=== PATIENT | female | born 1925 | race Asian ===

== ENCOUNTER 2016-08-16 15:08 | Emergency (ER) | payer MEDICARE, MEDICAID ==
[~2016-08-16] VITALS: Ht 152.4 cm; Wt 68.0 kg
[2016-08-16 15:16] VITALS: BP 89/59
--- NOTE | 2016-08-16 15:32 | Emergency Room Report ---
History of Present Illness General Chief Complaint: Dyspnea/Respdistress Source: Family Member, EMS Present Illness HPI Patient presents with worsening dyspnea that began last night. The son also states that she's had a mildly productive cough and also fever. She is transported by S. She is in hospice care. The family was uncomfortable about allowing her to at home. In discussion with the son refocuses comfort measures only. She has a history of cancer. Previously she had severe abdominal pain that was treated with morphine. She is unresponsive now. No other history is available. Allergies: Coded Allergies: No Known Allergies (Unverified , 08/16/16) Patient History Limited by: medical condition Past Medical History: see triage record Social History Narrative hospice Reviewed Nursing Documentation: PMH: Agreed, PSxH: Agreed Nursing Documentation-PMH Past Medical History: No History, Except For Hx Cancer: Yes - Unknown Review of Systems All Other Systems: limited Physical Exam Vital Signs Date Time Temp Pulse Resp B/P Pulse Ox O2 Delivery O2 Flow Rate FiO2 08/16/16 15:06 160 30 102/60 87 Non-Rebreather 15.0 08/16/16 15:16 94.5 Sp02 EP Interpretation: reviewed, abnormal - interpreted as low my me General Appearance: mild distress, Chronically Ill Head: normocephalic, atraumatic Eyes: bilateral eye PERRL, bilateral eye conjunctivae pale ENT: moist mucus membranes Neck: supple Respiratory: rales, other - tachypnea and poor tidal volumes Cardiovascular #1: regular rate, rhythm Cardiovascular #2: 2+ radial (R) Gastrointestinal: no guarding, abnormal bowel sounds - decreased, distended Musculoskeletal: back normal, no calf tenderness, decreased range of motion Neurologic: other - flaccid and unresponsive Psychiatric: other - unresponsive Reflexes: 0 knee (R), 0 knee (L) Skin: cyanosis, mottled Medical Decision Making Diagnostic Impression: Primary Impression: Respiratory failure Qualified Codes: J96.01 - Acute respiratory failure with hypoxia; J96.02 - Acute respiratory failure with hypercapnia ER Course The patient has ineffective ventilations. She appears to be moribund. Her O2 saturations are low. I discussed this with the son and he realizes that she is most likely preterminal. We are focusing on comfort measures. Patient made comfortable. Discussed with son. Patient without respirations or heart sounds. Pronounced at 15:54. Rhythm Strip Diag. Results Rhythm: no PVC's, no ectopy, other - sinus tachycardia Disposition: Condition: Antoine Lott M.D. Aug 16, 2016 15:32
[2016-08-16 17:05] VITALS: BP 59/19
== END 2016-08-16 17:05 | disposition expired ==
LOC: EDBD 15:08 → EMR 15:32
DX: J96.91 Respiratory failure, unspecified with hypoxia (principal); Z51.5 Encounter for palliative care; Z85.9 Personal history of malignant neoplasm, unspecified; Z66 Do not resuscitate
CPT/HCPCS: 99284